=== PATIENT | female | born 1970 | race Hispanic/Latino ===

== ENCOUNTER 2017-08-21 09:32 | Emergency (ER) | payer MEDICARE, MEDICAID ==
[2017-08-21 09:42] VITALS: TEMP 98.3; O2SAT 98
[2017-08-21 10:01] VITALS: BMI 21.6
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
[2017-08-21 11:13] LABS: BASO # 0.02 K/mm3 (0.0-2.0); BASO % 0.2 % (0.0-3.0); EOS % 0.5 % (1.5-5.0); GRAN # 5.91 (1.4-6.5); GRAN % 72.5 % (50.0-68.0); HEMOGLOBIN 11.6 g/dL (12.0-16.0); LYMPH # 1.8 (1.2-3.4); LYMPH % 21.9 % (22.0-35.0); MEAN CELL VOLUME 95.9 fl (80.0-105.0); MEAN CORPUSCULAR HEMOGLOBIN 31.9 pg (25.0-35.0); MEAN CORPUSCULAR HGB CONC 33.2 g/dl (31.0-37.0); MEAN PLATELET VOLUME 8.8 fl (7.0-11.0); MONO # 0.4 (0.1-0.6); MONO % 4.9 % (1.0-6.0); RBC 3.64 10^6/uL (3.5-6.1); RED CELL DISTRIBUTION WIDTH 15.1 % (11.5-14.5); WHITE BLOOD COUNT 8.2 10^3/ul (4.5-11.0)
[2017-08-21 11:23] LABS: ALB/GLOB RATIO 1.5 (1.1-1.8); ALBUMIN 4.7 g/dL (3.0-4.8); ALT/SGPT 26 U/L (7-56); AST/SGOT 27 U/L (14-36); BLOOD UREA NITROGEN 17 mg/dL (7-21); CALCIUM 9.1 mg/dL (8.4-10.5); GFR AFRICAN-AMERICAN > 60; GFR NON-AFRICAN AMERICAN > 60
[2017-08-21 11:29] LABS: INR 1.08 (0.93-1.08); PARTIAL THROMBOPLASTIN TIME 33.9 Seconds (25.1-36.5); PROTHROMBIN TIME 12.4 SECONDS (9.4-12.5)
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
[2017-08-21 13:51] VITALS: BP 123/76; PULSE 76; RESP 18
== END 2017-08-21 13:59 | disposition home or self-care (01) ==
LOC: ED 09:32
DX: M54.2 Cervicalgia (principal)
CPT/HCPCS: 70490; 80053; 85025; 85610; 85730; 96374; 99285; J1885

== ENCOUNTER 2018-03-09 09:04 | Emergency (ER) | payer MEDICARE, MEDICAID ==
[2018-03-09 09:13] VITALS: RESP 18; O2SAT 100; BMI 22.4
[2018-03-09 10:26] LABS: VENOUS BLOOD GAS BASE EXCESS 0.5 mmol/L (0.0-2.0); VENOUS BLOOD GAS PO2 114 mm/Hg (30-55); VENOUS BLOOD PH 7.38 (7.32-7.43)
[2018-03-09 10:31] LABS: BASO # 0.02 K/mm3 (0.0-2.0); BASO % 0.3 % (0.0-3.0); EOS # 0.2 (0.0-0.7); EOS % 2.4 % (1.5-5.0); HEMOGLOBIN 10.7 g/dL (12.0-16.0); LYMPH # 2.1 (1.2-3.4); LYMPH % 34.5 % (22.0-35.0); MEAN CELL VOLUME 85.7 fl (80.0-105.0); MEAN CORPUSCULAR HEMOGLOBIN 26.8 pg (25.0-35.0); MEAN CORPUSCULAR HGB CONC 31.3 g/dl (31.0-37.0); MEAN PLATELET VOLUME 9.1 fl (7.0-11.0); MONO # 0.3 (0.1-0.6); MONO % 5.5 % (1.0-6.0); RBC 3.99 10^6/uL (3.5-6.1); RED CELL DISTRIBUTION WIDTH 19.2 % (11.5-14.5); WHITE BLOOD COUNT 6.1 10^3/uL (4.5-11.0)
[2018-03-09] MEDS ORDERED: Morphine 4 mg/ml ISec IVP STA (10:31)
[2018-03-09 10:38] LABS: ALB/GLOB RATIO 1.3 (1.1-1.8); ALBUMIN 4.2 g/dL (3.0-4.8); ALT/SGPT 28 U/L (7-56); AST/SGOT 29 U/L (14-36); BLOOD UREA NITROGEN 15 mg/dL (7-21); CALCIUM 9.2 mg/dL (8.4-10.5); GFR NON-AFRICAN AMERICAN > 60; LIPASE 81 U/L (23-300)
[2018-03-09 10:46] LABS: INR 0.96; PARTIAL THROMBOPLASTIN TIME 33.1 Seconds (26.9-38.3); PROTHROMBIN TIME 10.9 SECONDS (9.4-12.5)
[2018-03-09] MEDS ORDERED: Iohexol 350 MG/100 ML VIAL ONE (10:56)
--- NOTE | 2018-03-09 10:57 | ED PDOC ---
Arrival/HPI - General Chief Complaint: Abdominal Pain Historian: Patient - History of Present Illness Narrative History of Present Illness (Text): 03/09/18 10:48 47 year old female, whose past medical history includes hypoglycemia, anemia, gastrointestinal ulcer, oophorectomy, appendectomy, cholecystectomy, and distal pancreatectomy, who presents to the emergency department complaining of right lower abdominal tenderness for the past week. Patient states the pain presented for 3 days, then resolved for 2 days, and has now returned. She notes associated right lower back pain, and subjective fever and chills. Of note, she is currently on her period, but states she hasn't had it in years, since her major surgery. She denies headache, dizziness, chest pain, shortness of breath, dyspnea on exertion, cough, nausea, vomiting, diarrhea, back pain, neck pain, or any other complaint. PMD: Dr. Vigil Time/Duration: 1 week Symptom Onset: Gradual Symptom Course: Unchanged Activities at Onset: Light Context: Home Past Medical History - Provider Review Nursing Documentation Reviewed: Yes - Infectious Disease Hx of Infectious Diseases: None - Tetanus Immunization Tetanus Immunization: Unknown - Reproductive Currently : No - Cardiac Hx Cardiac Disorders: No - Pulmonary Hx Respiratory Disorders: Yes Other/Comment: pt uses inhaler prn at home but does not know if she has copd/emphysema/asthma - Neurological Hx Neurological Disorder: Yes Hx Migraine: Yes Other/Comment: neuropathy - HEENT Hx HEENT Disorder: No - Renal Hx Renal Disorder: No - Endocrine/Metabolic Hx Endocrine Disorders: Yes Other/Comment: hypoglycemia - Hematological/Oncological Hx Blood Disorders: Yes Hx Anemia: Yes Hx Blood Transfusions: Yes Hx Blood Transfusion Reaction: Yes (pruritis) - Integumentary Hx Dermatological Disorder: No - Musculoskeletal/Rheumatological Hx Musculoskeletal Disorders: Yes Hx Arthritis: Yes (right knee) - Gastrointestinal Hx Gastrointestinal Disorders: Yes Hx Bowel Surgery: Yes Hx Gastrointestinal Ulcer: Yes Other/Comment: upper GIB - Genitourinary/Gynecological Hx Genitourinary Disorders: No - Psychiatric Hx Psychophysiologic Disorder: No Hx Substance Use: No - Past Surgical History Past Surgical History: Non-Contributing - Surgical History Hx Appendectomy: Yes Hx Cholecystectomy: Yes (with intestinal resection + gallstones) Other/Comment: bowel resection s/p gib/ulcerations. Oopharectomy - Anesthesia Hx Anesthesia: Yes Hx Anesthesia Reactions: No Hx Malignant Hyperthermia: No - Suicidal Assessment Feels Threatened In Home Enviroment: No Family/Social History - Physician Review Nursing Documentation Reviewed: Yes Family/Social History: No Known Family HX Smoking Status: Heavy Smoker > 10 Cigarettes Daily Hx Alcohol Use: No Hx Substance Use: No Hx Substance Use Treatment: No Allergies/Home Meds Allergies/Adverse Reactions: Allergies No Known Allergies Allergy (Verified 03/09/18 09:13) Review of Systems - Physician Review All systems were reviewed & negative as marked: Yes - Review of Systems Respiratory: absent: SOB, Cough Cardiovascular: absent: Chest Pain Gastrointestinal: Abdominal Pain (right lower quadrant ). absent: Diarrhea, Nausea, Vomiting Genitourinary Female: Vaginal Bleeding (period). absent: Dysuria, Frequency, Hematuria Musculoskeletal: absent: Back Pain, Neck Pain Neurological: absent: Headache, Dizziness Physical Exam Vital Signs Reviewed: Yes Vital Signs Temp Pulse Resp BP Pulse Ox 03/09/18 09:07 98.1 F 76 18 157/98 H 100 Temperature: Afebrile Blood Pressure: Hypertensive Pulse: Regular Respiratory Rate: Normal Appearance: Positive for: Well-Appearing, Non-Toxic, Comfortable Pain Distress: None Mental Status: Positive for: Alert and Oriented X 3 - Systems Exam Head: Present: Atraumatic, Normocephalic Pupils: Present: PERRL Extroacular Muscles: Present: EOMI Conjunctiva: Present: Normal Mouth: Present: Moist Mucous Membranes Neck: Present: Normal Range of Motion Respiratory/Chest: Present: Clear to Auscultation, Good Air Exchange. No: Respiratory Distress, Accessory Muscle Use Cardiovascular: Present: Regular Rate and Rhythm, Normal S1, S2. No: Murmurs Abdomen: Present: Tenderness (right lower quadrant tenderness, pain with palpation). No: Distention, Peritoneal Signs Back: Present: CVA Tenderness (right CVA tenderness) Upper Extremity: Present: Normal Inspection. No: Cyanosis, Edema Lower Extremity: Present: Normal Inspection. No: Edema Neurological: Present: GCS=15, CN II-XII Intact, Speech Normal Skin: Present: Warm, Dry, Normal Color. No: Rashes Psychiatric: Present: Alert, Oriented x 3, Normal Insight, Normal Concentration Medical Decision Making ED Course and Treatment: 03/09/18 10:58 Impression: 47 year old female who presents to the emergency department complaining of right lower quadrant abdominal pain. Differential Diagnosis included but are not limited to: Obstruction Typhlitis Colitis Plan: -- VBG -- CT abdomen and Pelvis -- Labs -- Morphine --Toradol --Valium -- Blood Culture -- Urine Culture -- POC urine test -- Urinalysis -- Reassess and disposition Prior Visits: Notes and results from previous visits were reviewed. Progress Notes: 03/09/18 12:17 Labs reviewed with no leukocytosis noted and electrolytes within normal limits. CT a/p reveals left cystic lesion present on the adnexa. Patient made aware and will follow up with her OFFICE TECHNOLOGY INSTRUCTOR. She is stable for discharge. - Lab Interpretations Lab Results: pO2 114 mm/Hg (30-55) H 03/09/18 10:10 VBG pH 7.38 (7.32-7.43) 03/09/18 10:10 VBG pCO2 44.0 (40-60) 03/09/18 10:10 VBG HCO3 26.0 mmol/l (21-28) 03/09/18 10:10 VBG Total CO2 27.4 mmol.L (22-28) 03/09/18 10:10 VBG O2 Sat (Calc) 98.2 % (40-65) H 03/09/18 10:10 VBG Base Excess 0.5 mmol/L (0.0-2.0) 03/09/18 10:10 VBG Potassium 4.1 mmol/L (3.6-5.2) 03/09/18 10:10 Sodium 139.0 mmol/L (132-148) 03/09/18 10:10 Chloride 109.0 mmol/L (98-107) H 03/09/18 10:10 Glucose 89 mg/dl (65-105) 03/09/18 10:10 Lactate 1.1 mmol/L (0.7-2.1) 03/09/18 10:10 FiO2 21.0 % 03/09/18 10:10 PT 10.9 SECONDS (9.4-12.5) 03/09/18 10:10 INR 0.96 03/09/18 10:10 APTT 33.1 Seconds (26.9-38.3) 03/09/18 10:10 Total Bilirubin 0.3 mg/dL (0.2-1.3) 03/09/18 10:10 AST 29 U/L (14-36) 03/09/18 10:10 ALT 28 U/L (7-56) 03/09/18 10:10 Alkaline Phosphatase 77 U/L (38-126) 03/09/18 10:10 Total Protein 7.3 g/dL (5.8-8.3) 03/09/18 10:10 Albumin 4.2 g/dL (3.0-4.8) 03/09/18 10:10 Globulin 3.1 gm/dL 03/09/18 10:10 Albumin/Globulin Ratio 1.3 (1.1-1.8) 03/09/18 10:10 Lipase 81 U/L (23-300) 03/09/18 10:10 I have reviewed the lab results: Yes - RAD Interpretation Narrative RAD Interpretations (Text): 03/09/18 12:14 CT of abdomen and Pelvis reviewed by radiologist, shows: IMPRESSION: 5.5 centimeter elongated cystic lesion in the left adnexal region. Increased in size from prior examination when it measured 3.4 centimeters. Radiology Orders: 03/09/18 10:47 ABDOMEN & PELVIS [ABD & PELVIS IV CONTRAST ONLY] [CT] Stat Dry Kiln Operator: Radiologist - EKG Interpretation EKG Interpretation (Text): 03/09/18 14:56 EKG reviewed by me, shows: NSR at 69bpm with no ST elevations Interpreted by ED Physician: Yes Type: 12 lead EKG - Medication Orders Current Medication Orders: Discontinued Medications Morphine Sulfate (Morphine) 4 mg IVP STAT STA Stop: 03/09/18 10:32 Last Admin: 03/09/18 10:42 Dose: 4 mg [facility] Pain Assessment Document 03/09/18 10:42 KV (Rec: 03/09/18 10:43 KV [facility] [id number]) Pain Reassessment Is this a pain reassessment? No Location Left, Right or Bilateral Right Upper or Lower Lower Pain Location Body Site Abdomen Description Description Constant Intensity of Pain at present 9 IVP Administration Document 03/09/18 10:42 KV (Rec: 03/09/18 10:43 KV [facility] [id number]) Charges for Administration # of IVP Administrations 1 - Scribe Statement The provider has reviewed the documentation as recorded by the Scribe Yenni Eagle Provider Scribe Attestation: All medical record entries made by the Scribe were at my direction and personally dictated by me. I have reviewed the chart and agree that the record accurately reflects my personal performance of the history, physical exam, medical decision making, and the department course for this patient. I have also personally directed, reviewed, and agree with the discharge instructions and disposition. Disposition/Present on Arrival - Present on Arrival Any Indicators Present on Arrival: No History of DVT/PE: No History of Uncontrolled Diabetes: No Urinary Catheter: No History of Decub. Ulcer: No History Surgical Site Infection Following: None - Disposition Have Diagnosis and Disposition been Completed?: Yes Diagnosis: Adnexal cyst, Abdominal pain Disposition: HOME/ ROUTINE Disposition Time: 12:20 Patient Plan: Discharge Condition: STABLE Discharge Instructions (ExitCare): Acute Abdomen (Belly Pain), Adult (DC) Print Language: OCCITAN Additional Instructions: All medical record entries made by the Scribe were at my direction and personally dictated by me. I have reviewed the chart and agree that the record accurately reflects my personal performance of the history, physical exam, medical decision making, and the department course for this patient. I have also personally directed, reviewed, and agree with the discharge instructions and disposition. Please follow up with your PCP in 3-5 days Please follow up with an OFFICE TECHNOLOGY INSTRUCTOR in 1 week Prescriptions: Ibuprofen [Motrin] 600 mg PO Q6H #12 tab oxyCODONE/Acetaminophen [Percocet 5/325 mg Tab] 1 ea PO PRN PRN #6 tab PRN Reason: Pain, Severe (8-10) Referrals: Musa HOLLAND,Sadiq Modi MD [Primary Care Provider] - Follow up with primary Narciso Davenport MD [Medical Doctor] - Follow up with primary Forms: [employer] (Barbadian), WORK NOTE
[2018-03-09] MEDS ORDERED: Alum-Mag Hydrox-Simethicone Susp (30 mL) PO STA (11:04)
[2018-03-09] MEDS ORDERED: Atrop/Hyosc/Scopal/PB Elixir (120 ml) PO STA (11:04)
[2018-03-09 11:24] LABS: PH,URINE 6.5 (4.7-8.0); URINE APPEARANCE CLEAR (CLEAR); URINE BILIRUBIN NEGATIVE (NEGATIVE); URINE BLOOD NEGATIVE (NEGATIVE); URINE COLOR YELLOW (YELLOW); URINE GLUCOSE (UA) NEGATIVE (NEGATIVE); URINE LEUKOCYTE ESTERASE NEGATIVE Leu/uL (NEGATIVE); URINE PROTEIN NEGATIVE mg/dL (<30 mg/dL); URINE UROBILINOGEN 0.2 E.U./dL (<1 E.U./dL)
--- NOTE | 2018-03-09 11:50 | CT ---
Date of service: 03/09/2018 PROCEDURE: CT Abdomen and Pelvis with contrast HISTORY: abdominal pain r/o obstruction COMPARISON: 03/20/2016 TECHNIQUE: Contrast dose: Radiation dose: Total exam DLP = 325.48 mGy-cm. This CT exam was performed using one or more of the following dose reduction techniques: Automated exposure control, adjustment of the mA and/or kV according to patient size, and/or use of iterative reconstruction technique. FINDINGS: LOWER THORAX: Unremarkable. LIVER: Unremarkable. No gross lesion or ductal dilatation. GALLBLADDER AND BILE DUCTS: Cholecystectomy. PANCREAS: Unremarkable. No gross lesion or ductal dilatation. SPLEEN: Unremarkable. ADRENALS: Unremarkable. No mass. KIDNEYS AND URETERS: Unremarkable. No hydronephrosis. No solid mass. VASCULATURE: Unremarkable. No aortic aneurysm. No aortic atherosclerotic calcification or mural plaque present. BOWEL: Unremarkable. No obstruction. No gross mural thickening. APPENDIX: Normal appendix. PERITONEUM: Unremarkable. No free fluid. No free air. LYMPH NODES: Unremarkable. No enlarged lymph nodes. BLADDER: Unremarkable. REPRODUCTIVE: 5.5 centimeter elongated cystic lesion in the left adnexal region. BONES: No acute fracture. OTHER FINDINGS: None. IMPRESSION: 5.5 centimeter elongated cystic lesion in the left adnexal region. Increased in size from prior examination when it measured 3.4 centimeters.
--- NOTE | 2018-03-09 12:08 | CARD ---
APPROVED REPORT Date of service: 03/09/2018 EKG Measurement Heart [id number] <Conclusion> Normal sinus rhythm Normal ECG
[2018-03-09 13:24] VITALS: BP 118/75; PULSE 83; TEMP 98.2
== END 2018-03-09 13:23 | disposition home or self-care (01) ==
LOC: ED 09:04
DX: R10.31 Right lower quadrant pain (principal); N94.9 Unspecified condition associated with female genital organs and menstrual cycle; F17.210 Nicotine dependence, cigarettes, uncomplicated
CPT/HCPCS: 74177; 80053; 81003; 81025; 82803; 83690; 83735; 85025; 85610; 85730; 87040; 87086; 93005; 96374; 96375; 99284; J1885; J2270; Q9967

== ENCOUNTER 2018-03-16 08:15 | Outpatient (CLI) | payer MEDICARE, MEDICAID | END 2018-03-16 08:16 | disposition home or self-care (01) | LOC: RAD 08:15 ==

== ENCOUNTER 2018-04-07 10:18 | Outpatient (CLI) | payer MEDICARE, MEDICAID | END 2018-04-07 10:19 | disposition home or self-care (01) | LOC: RAD 10:18 ==